=== PATIENT | female | born 1995 | race Caucasian/White ===

== ENCOUNTER 2021-09-21 00:06 | Emergency (ER) | payer OTHER ==
--- NOTE | 2021-09-21 01:29 | EDPHYS ---
Physician Documentation [facility] Name: Susie Short Age: 25 yrs Sex: Female : 1995 Arrival Date: 09/21/2021 Time: 00:10 Bed 8 Private MD: ED Physician Raymon Mcduffie HPI: 09/21 01:24 This 25 yrs old Female presents to ER via Ambulatory with complaints of check for kdr infection of csection. 01:24 Patient presents to ED for recheck of: Patient is about 48 hours post kdr delivery. The affected area is on the suprapubic area, right lower quadrant and left lower quadrant. Previous treatment:. Progress: The patient reports excellent improvement in the affected area. There has been resolution, improvement, or non-development of any drainage, fever, pain, redness or swelling. The patient has not experienced similar symptoms in the past. The patient has been recently seen by a physician: Patient is status post . Patient states she had a little bit of yellow discharge from the right lateral aspect of the wound. The wound appears in good condition and does not appear to be infected at this time peer. 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 - Social history:: Smoking status: Patient denies any tobacco usage or history of. ROS: 01:26 Constitutional: Negative for fever, chills, and weight loss, Eyes: Negative for injury, kdr pain, redness, and discharge, ENT: Negative for injury, pain, and discharge, Neck: Negative for injury, pain, and swelling, Cardiovascular: Negative for chest pain, palpitations, and edema, Respiratory: Negative for shortness of breath, cough, wheezing, and pleuritic chest pain, Back: Negative for injury and pain, : Negative for injury, bleeding, discharge, and swelling, MS/Extremity: Negative for injury and deformity, Skin: Negative for injury, rash, and discoloration, Neuro: Negative for headache, weakness, numbness, tingling, and seizure activity. Psych: Negative for depression, anxiety, suicide ideation, homicidal ideation, and hallucinations, Allergy/Immunology: Negative for hives, rash, and allergies, Endocrine: Negative for neck swelling, polydipsia, polyuria, polyphagia, and marked weight changes, Hematologic/Lymphatic: Negative for swollen nodes, abnormal bleeding, and unusual bruising. 01:26 Abdomen/GI: Positive for abdominal pain, Negative for nausea, vomiting, and diarrhea, abdominal cramps, abdominal distension, black/tarry stool, rectal pain, rectal bleeding. Exam: 01:26 Constitutional: This is a well developed, well nourished patient who is awake, alert, kdr and in no acute distress. Head/Face: Normocephalic, atraumatic. 01:26 Abdomen/GI: Inspection: scar(s), are noted in the suprapubic area, right lower quadrant and left lower quadrant, Patient has a horizontal lower abdominal incision that is Steri-Stripped in good condition. There is no evidence of any infection and I was unable to express any drainage from the wound.. Vital Signs: 00:15 BP 124 / 79; Pulse 99; Resp 18; Temp 98.4; Pulse Ox 98% on R/A; Weight 63.5 kg; Height tw5 5 ft. 3 in. (160.02 cm); Pain 3/10; 00:54 BP 110 / 67; Pulse 79; Resp 18 S; Pulse Ox 99% on R/A; as6 00:15 Body Mass Index 24.80 (63.50 kg, 160.02 cm) tw5 00:15 "I just took some hydrocorodone but before that I was in extreme pain,: tw5 MDM: 01:26 Data reviewed: vital signs, nurses notes, lab test result(s), radiologic studies. kdr Counseling: I had a detailed discussion with the patient and/or guardian regarding: the historical points, exam findings, and any diagnostic results supporting the discharge/admit diagnosis, lab results, radiology results. ED course: The nanotechnology engineering technologist reported that there was no area of concern for abscess or fluid collection at this time. The data would be sent to the night reader for official report. 01:29 Patient medically screened. kdr 09/21 00:44 Order name: US Abdomen Limited kdr Administered Medications: No medications were administered Disposition Summary: 09/21/21 01:29 Discharge Ordered Location: Home kdr Problem: new kdr Symptoms: are unchanged kdr Condition: Stable kdr Diagnosis - Other abdominal pain - Post , incisional pain kdr Followup: kdr - With: Private Physician - When: 2 - 3 days - Reason: If symptoms return, Further diagnostic work-up, Recheck today's complaints, Continuance of care, Re-evaluation by your physician Discharge Instructions: - Discharge Summary Sheet kdr - Abdominal Pain, Adult, [id number] kdr - Incision Care, Adult, [id number] kdr Forms: - Medication Reconciliation Form kdr - Thank You Letter kdr Signatures: Dispatcher [employer] Raymon North MD MD kdr Abi Zavala tw5
--- NOTE | 2021-09-21 01:29 | ER ---
Nurse's Notes [facility] Name: Susie Short Age: 25 yrs Sex: Female : 1995 Arrival Date: 09/21/2021 Time: 00:10 Bed 8 Private MD: Diagnosis: Other abdominal pain-Post , incisional pain Presentation: 09/21 00:15 Chief complaint: Patient states: "I think my scar is infected. I just had her tw5 48 hours ago. They told me to come here. It is yellow with red streaks and it is pretty painful on the right side. I don't recall my last hurting this bad". Coronavirus screen: Vaccine status: Patient reports being unvaccinated. Ebola Screen: Patient negative for fever greater than or equal to 101.5 degrees Fahrenheit, and additional compatible Ebola Virus Disease symptoms Patient denies exposure to infectious person. Patient denies travel to an Ebola-affected area in the 21 days before illness onset. Initial Sepsis Screen: Does the patient meet any 2 criteria? HR > 90 bpm. No. Patient's initial sepsis screen is negative. Does the patient have a suspected source of infection? Yes: Skin breakdown/wound. Risk Assessment: Do you want to hurt yourself or someone else? Patient reports no desire to harm self or others. Onset of symptoms was September 20, 2021 at 16:00. 00:15 Method Of Arrival: Ambulatory tw5 00:15 Acuity: GENIA 3 tw5 Triage Assessment: 00:19 General: Appears uncomfortable, Behavior is calm, cooperative, appropriate for age. tw5 Pain: Pain currently is 3 out of 10 on a pain scale. at worst was 10 out of 10 on a pain scale. 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 - Social history:: Smoking status: Patient denies any tobacco usage or history of. Screenin:55 Abuse screen: Denies threats or abuse. Denies injuries from another. Nutritional as6 screening: No deficits noted. Tuberculosis screening: No symptoms or risk factors identified. Fall Risk None identified. Assessment: 00:53 General: Appears in no apparent distress. Behavior is calm, cooperative. Pain: as6 Complains of pain in suprapubic area. Neuro: Level of Consciousness is awake, alert, obeys commands, Oriented to person, place, time, situation. Cardiovascular: Capillary refill < 3 seconds Patient's skin is warm and dry. Respiratory: Airway is patent Trachea midline Respiratory effort is even, unlabored, Respiratory pattern is regular, symmetrical. GI: Abdomen is round. Derm: Wound noted suprapubic area Wound is incision, reddened, warm,with slight oozing. Vital Signs: 00:15 BP 124 / 79; Pulse 99; Resp 18; Temp 98.4; Pulse Ox 98% on R/A; Weight 63.5 kg; Height tw5 5 ft. 3 in. (160.02 cm); Pain 3/10; 00:54 BP 110 / 67; Pulse 79; Resp 18 S; Pulse Ox 99% on R/A; as6 00:15 Body Mass Index 24.80 (63.50 kg, 160.02 cm) tw5 00:15 "I just took some hydrocorodone but before that I was in extreme pain,: tw5 ED Course: 00:10 Patient arrived in ED. es 00:19 Triage completed. tw5 00:19 Arm band placed on right wrist. tw5 00:27 Randall Lopez, SHYAM is Primary Nurse. as6 00:32 Raymon Mcduffie MD is Attending Physician. kdr 00:55 Bed in low position. Call light in reach. Side rails up X2. Adult w/ patient. Pulse ox as6 on. NIBP on. Warm blanket given. PO fluids given. 01:13 US Abdomen Limited In Process Unspecified. EDMS 01:30 No provider procedures requiring assistance completed. Patient did not have IV access as6 during this emergency room visit. Administered Medications: No medications were administered Outcome: 01:29 Discharge ordered by . kdr 01:47 Discharged to home ambulatory, with family. as6 01:47 Condition: stable 01:47 Discharge instructions given to patient, Instructed on discharge instructions, follow up and referral plans. Demonstrated understanding of instructions, follow-up care. 01:48 Patient left the ED. as6 Signatures: Dispatcher [employer] Raymon North MD MD kdr Salyer, Edna es Wood, Tiffany tw5 Randall Lopez RN RN as6
[2021-09-21 02:02] VITALS: TEMP 98.4
[2021-09-21 02:03] VITALS: BP 110/67; O2SAT 99
--- NOTE | 2021-09-21 15:42 | RAD REPORT ---
EXAM DESCRIPTION: US - Abdomen Exam Limited - 09/21/2021 1:59 am CLINICAL HISTORY: 25 years, Female, ABD PAIN COMPARISON: None. TECHNIQUE: Utilizing a curved array transducer, real-time ultrasound evaluation of the female pelvis was performed. Color Doppler imaging was used to assess vascular flow. FINDINGS: The uterus is prominent. There is no evidence for abnormal fluid collection. No evidence f or free air, gas and/or the presence of a post surgical changes. No free fluid was identified in the posterior cul-de-sac, no adnexal masses seen. No significant abnormalities demonstrated within the skin/or substance tissue IMPRESSION: NO SIGNIFICANT ABNORMALITIES IDENTIFIED WITHIN THE RIGHT PELVIC AREA AT THE AREA OF KAYLENE ENT AGE PAIN. NO EVIDENCE FOR FREE FLUID, MASS AND/OR POSTSURGICAL CHANGES. Electronically signed by: Nino Barnett MD 09/21/2021 1:51 AM YARN FINISHER Due to temporary technical issues with the PACS/Fluency reporting system, reports are being signed by the in house radiologists without review as a courtesy to insure prompt reporting. The interpreting radiologist is fully responsible for the content of the report.
== END 2021-09-21 01:48 | disposition home or self-care (01) ==
LOC: ER 00:06
DX: R10.9 Unspecified abdominal pain (principal); Z98.890 Other specified postprocedural states; Z88.5 Allergy status to narcotic agent
CPT/HCPCS: 76705; 99283

== ENCOUNTER 2021-10-02 09:23 | Emergency (ER) | payer OTHER ==
[2021-10-02 10:15] LABS: Urine Blood 3+ (Negative); Urine Glucose Negative (Negative); Urine Protein Negative (Negative); Urine Specific Gravity >=1.030 (1.005-1.030)
--- NOTE | 2021-10-02 11:06 | RAD REPORT ---
EXAM DESCRIPTION: US - Pelvis Complete - 10/02/2021 10:51 am CLINICAL HISTORY: pelvic pain Pelvic pain. COMPARISON: No comparisons FINDINGS: The uterus is normal in size, shape and echotexture. The uterus measures 9.6 cm Trace fluid within the endometrial canal. . Both ovaries are normal in size, shape and echotexture. The right ovary measures 1.7 cc. The left o vary measures 3.5 cc. No ovarian or parovarian lesions. No adnexal masses. Normal Doppler blood flow was demonstrated to both ovaries. No significant pelvic ascites. IMPRESSION: Fluid within the endometrial canal could represent small volume of blood products. No ot her significant abnormality identified. Bilateral ovarian blood flow.
--- NOTE | 2021-10-02 12:02 | EDPHYS ---
Physician Documentation [facility] Name: Susie Short Age: 25 yrs Sex: Female : 1995 Arrival Date: 10/02/2021 Time: 09:24 Bed 17 Private MD: ED Physician Yannick Lees HPI: 10/02 09:45 This 25 yrs old Female presents to ER via Ambulatory with complaints of Pelvic Pain, jmm csection problem. 09:45 The patient presents with vaginal bleeding that is light. Onset: The symptoms/episode jmm began/occurred gradually, 2 week(s) ago. Modifying factors: The symptoms are alleviated by nothing, the symptoms are aggravated by nothing. This is a 25-year-old female G1, P1 that presents emerged department with complaints of lower abdominal pain and pelvic pain which has been ongoing since delivery approximately 2 weeks ago. Patient is been evaluated for wound dehiscence previously at this ED. Patient states her pelvic pain is moved mainly to the right side. Denies passing any clots or tissue. . Historical: - Allergies: 09:32 Morphine; ww - Home Meds: 09:32 albuterol sulfate 2 mg/5 mL Oral syrp [Active]; ww - PSHx: 09:32 section; ww - Immunization history:: Adult Immunizations not immunized. - Social history:: Smoking status: Patient denies any tobacco usage or history of. Patient uses street drugs, marijuana. ROS: 09:45 Constitutional: Negative for fever, chills, and weight loss, Cardiovascular: Negative jmm for chest pain, palpitations, and edema, Respiratory: Negative for shortness of breath, cough, wheezing, and pleuritic chest pain. 09:45 : Positive for pelvic pain, vaginal bleeding. 09:45 All other systems are negative. Exam: 09:45 Constitutional: This is a well developed, well nourished patient who is awake, alert, jmm and in no acute distress. Head/Face: atraumatic. Eyes: EOMI, no conjunctival erythema appreciated ENT: Moist Mucus Membranes Neck: Trachea midline, Supple Chest/axilla: Normal chest wall appearance and motion. Cardiovascular: Regular rate and rhythm. No edema appreciated Respiratory: Normal respirations, no respiratory distress appreciated 09:45 Back: Normal ROM Skin: General appearance color normal MS/ Extremity: Moves all extremities, no obvious deformities appreciated, no edema noted to the lower extremities Neuro: Awake and alert Psych: Behavior is normal, Mood is normal, Patient is cooperative and pleasant 09:45 Abdomen/GI: Inspection: abdomen appears normal, Bowel sounds: normal, Palpation: soft, mild abdominal tenderness, in the suprapubic area. Vital Signs: 09:29 BP 110 / 72; Pulse 89; Resp 18; Temp 97.7; Pulse Ox 100% ; Height 5 ft. 3 in. (160.02 ww cm); Pain 7/10; 10:21 BP 111 / 58; Pulse 86; Resp 16; Pulse Ox 98% on R/A; ab2 11:15 BP 108 / 63; Pulse 89; Resp 16; Pulse Ox 99% on R/A; ab2 12:08 BP 112 / 69; Pulse 87; Resp 18; Pulse Ox 99% on R/A; ab2 MDM: 09:45 Patient medically screened. [facility] 11:57 Data reviewed: vital signs, nurses notes. [facility] 11:57 Counseling: I had a detailed discussion with the patient and/or guardian regarding: the [facility] historical points, exam findings, and any diagnostic results supporting the discharge/admit diagnosis, lab results, radiology results, the need for outpatient follow up, to return to the emergency department if symptoms worsen or persist or if there are any questions or concerns that arise at home. ED course: Patient alert and nontoxic in appearance in the ED. Physical exam was unremarkable. Patient's abdomen was soft, no signs of induration. No guarding on palpation. Patient will be treated with oral antibiotics for urinary tract infection otherwise advised to follow-up with LEADERSHIP INTERN for further evaluation.. 10/02 10:14 Order name: Urine Dipstick-Ancillary; Complete Time: 10:17 EDAR 10/02 09:59 Order name: US Pelvis Complete; Complete Time: 11:14 [facility] 10/02 09:59 Order name: Urine Dipstick-Ancillary (obtain specimen); Complete Time: 10:14 [facility] Administered Medications: No medications were administered Disposition Summary: 10/02/21 12:01 Discharge Ordered Location: Home [facility] Condition: Stable [facility] Diagnosis - Pelvic and perineal pain [facility] - UTI/ Urinary tract infection, site not specified [facility] Followup: [facility] - With: Private Physician - When: 2 - 3 days - Reason: Recheck today's complaints, Continuance of care, Re-evaluation by your physician Discharge Instructions: - Discharge Summary Sheet jmm - Urinary Tract Infection, Adult jmm - Delivery, Care After jmm - Care After Delivery [facility] Forms: - Medication Reconciliation Form jm - Thank You Letter jmm - Antibiotic Education jmm - Prescription Opioid Use jm Prescriptions: - Cephalexin 500 mg Oral Capsule - take 1 capsule by ORAL route every 8 hours for 10 days; 30 capsule; Refills: 0, jmm Product Selection Permitted Signatures: Dispatcher [employer] Yannick Cheng MD MD cha Mickail, Joel, PA PA Thuy Harrison, RN RN ww
--- NOTE | 2021-10-02 12:02 | ER ---
Nurse's Notes [facility] Name: Susie Short Age: 25 yrs Sex: Female : 1995 Arrival Date: 10/02/2021 Time: 09:24 Bed 17 Private MD: Diagnosis: Pelvic and perineal pain;UTI/ Urinary tract infection, site not specified Presentation: 10/02 09:29 Chief complaint: Patient states: Had a 2 weeks ago tomorrow and popped an internal stitch 6 days ago and went to [facility] and they said everything was fine. She is still complaining of abdominal pain with increased vaginal bleeding but not soaking a pad. Admits to nausea that is progressively worse but denies any vomiting. Lightheaded and blurry vision at times but very frequent per spouse. Coronavirus screen: Client denies travel out of the [place] in the last 14 days. Ebola Screen: Patient negative for fever greater than or equal to 101.5 degrees Fahrenheit, and additional compatible Ebola Virus Disease symptoms. Initial Sepsis Screen: Does the patient meet any 2 criteria? No. Patient's initial sepsis screen is negative. Does the patient have a suspected source of infection? No. Patient's initial sepsis screen is negative. Risk Assessment: Do you want to hurt yourself or someone else? Patient reports no desire to harm self or others. Onset of symptoms is unknown. 09:29 Method Of Arrival: Ambulatory 09:29 Acuity: GENIA 3 Triage Assessment: 09:32 General: Appears uncomfortable, Behavior is cooperative. Pain: Complains of pain in suprapubic area, right lower quadrant and left lower quadrant. EENT: No signs and/or symptoms were reported regarding the EENT system. Neuro: Level of Consciousness is awake, alert, obeys commands, Oriented to person, place, time, situation, Speech is normal. Cardiovascular: Capillary refill < 3 seconds Patient's skin is warm and dry. Respiratory: Airway is patent Respiratory effort is even, unlabored, Respiratory pattern is regular, symmetrical. GI: Reports lower abdominal pain, nausea. Derm: Skin is healthy with good turgor. Historical: - Allergies: 09:32 Morphine; ww - Home Meds: 09:32 albuterol sulfate 2 mg/5 mL Oral syrp [Active]; ww - PSHx: 09:32 section; ww - Immunization history:: Adult Immunizations not immunized. - Social history:: Smoking status: Patient denies any tobacco usage or history of. Patient uses street drugs, marijuana. Screenin:35 Abuse screen: Denies threats or abuse. Denies injuries from another. Nutritional ww screening: No deficits noted. Tuberculosis screening: No symptoms or risk factors identified. Fall Risk None identified. Assessment: 09:57 Reassessment:. General: Appears in no apparent distress. comfortable, Behavior is calm, ab2 cooperative, appropriate for age. Pain: Complains of pain in suprapubic area. Neuro: Level of Consciousness is awake, alert, obeys commands, Oriented to person, place, time, situation, Appropriate for age Title Insurance Examiner are equal bilaterally Moves all extremities. Gait is steady. Cardiovascular: Denies chest pain, shortness of breath, Heart tones S1 S2 present Patient's skin is warm and dry. Chest pain is denied. Respiratory: Airway is patent Respiratory effort is even, unlabored, Respiratory pattern is regular, symmetrical. GI: Abdomen is round non-distended, Bowel sounds present X 4 quads. Reports lower abdominal pain. : No deficits noted. No signs and/or symptoms were reported regarding the genitourinary system. EENT: No deficits noted. No signs and/or symptoms were reported regarding the EENT system. Vital Signs: 09:29 BP 110 / 72; Pulse 89; Resp 18; Temp 97.7; Pulse Ox 100% ; Height 5 ft. 3 in. (160.02 ww cm); Pain 7/10; 10:21 BP 111 / 58; Pulse 86; Resp 16; Pulse Ox 98% on R/A; ab2 11:15 BP 108 / 63; Pulse 89; Resp 16; Pulse Ox 99% on R/A; ab2 12:08 BP 112 / 69; Pulse 87; Resp 18; Pulse Ox 99% on R/A; ab2 ED Course: 09:24 Patient arrived in ED. am2 09:32 Triage completed. ww 09:32 Arm band placed on right wrist. ww 09:42 Maverick Mayo PA is PHCP. [facility] 09:42 Yannick Lees MD is Attending Physician. [facility] 09:57 Hai Stevenson is Primary Nurse. ab2 10:01 No provider procedures requiring assistance completed. ab2 10:02 Patient has correct armband on for positive identification. Bed in low position. Call ab2 light in reach. Side rails up X2. Adult w/ patient. 10:14 Urine Dipstick-Ancillary Sent. ab2 10:45 US Pelvis Complete In Process Unspecified. EDMS 12:09 Patient did not have IV access during this emergency room visit. ab2 Administered Medications: No medications were administered Outcome: 12:01 Discharge ordered by . rosalina 12:09 Discharged to home ambulatory, with family. ab2 12:09 Condition: good 12:09 Discharge instructions given to patient, family, Instructed on discharge instructions, follow up and referral plans. medication usage, Demonstrated understanding of instructions, follow-up care, medications, Prescriptions given X 1. 12:09 Patient left the ED. ab2 Signatures: Dispatcher [employer] EDMS Maverick Mayo PA PA jmm Moreno, Amanda am2 Thuy Zavala, RN RN Hai Whitaker ab2
[2021-10-02 12:16] VITALS: TEMP 97.7
[2021-10-02 12:18] VITALS: O2SAT 99
[2021-10-02 12:19] VITALS: BP 112/69
== END 2021-10-02 12:09 | disposition home or self-care (01) ==
LOC: ER 09:23
DX: N39.0 Urinary tract infection, site not specified (principal); Z88.5 Allergy status to narcotic agent
CPT/HCPCS: 76856; 81003; 99283

== ENCOUNTER 2021-10-18 05:10 | Emergency (ER) | payer OTHER ==
--- NOTE | 2021-10-18 05:46 | EDPHYS ---
Physician Documentation [facility] Name: Susie Short Age: 26 yrs Sex: Female : 1995 Arrival Date: 10/18/2021 Time: 05:13 Bed 20 Private MD: ED Physician Jalen Santiago HPI: 10/18 05:49 This 26 yrs old Female presents to ER via Ambulatory with complaints of C SECTION ms3 INFECTED. 05:49 The patient's rash thought to be caused by Erythema at c section scar. The rash is ms3 located on the suprapubic area. The rash can be described as erythematous. Onset: The symptoms/episode began/occurred acutely, 2 day(s) ago. Associated signs and symptoms: Pertinent positives: Pain Pertinent negatives: fever. Severity of symptoms: At their worst the symptoms were moderate in the emergency department the symptoms are unchanged. 6-year-old female with past medical history of asthma presents for infection of her incision. Patient states she had a on September 19, 2021. Patient states the pain is a 5/10 and aching. Patient states the pain is worse when laying on her right side. Patient states this has been ongoing for 2 days.. 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 - Social history:: Smoking status: Patient denies any tobacco usage or history of. Patient uses street drugs, marijuana. ROS: 05:49 Constitutional: Negative for fever, and chills. Neck: Negative for injury, pain, and ms3 swelling, Cardiovascular: Negative for chest pain, and palpitations. Respiratory: Negative for shortness of breath, cough, wheezing, and pleuritic chest pain, Abdomen/GI: Negative for abdominal pain, nausea, vomiting, diarrhea, and constipation, Back: Negative for injury and pain, MS/Extremity: Negative for injury and deformity. 05:49 Skin: Positive for rash. 05:49 All other systems are negative. Exam: 05:49 Constitutional: This is a well developed, well nourished patient who is awake, alert, ms3 and in no acute distress. Head/Face: Normocephalic, atraumatic. Neck: Trachea midline, no cervical lymphadenopathy. Supple, full range of motion without nuchal rigidity, or vertebral point tenderness. No Meningismus. Chest/axilla: Normal chest wall appearance and motion. Nontender with no deformity. Cardiovascular: Regular rate and rhythm with a normal S1 and S2. No gallops, murmurs, or rubs. Normal PMI, no JVD. No pulse deficits. Respiratory: Lungs have equal breath sounds bilaterally, clear to auscultation and percussion. No rales, rhonchi or wheezes noted. No increased work of breathing, no retractions or nasal flaring. Abdomen/GI: Soft, non-tender, with normal bowel sounds. No distension or tympany. No guarding or rebound. No evidence of tenderness throughout. 05:49 Skin: cellulitis, that is moderate, on the suprapubic area, Bedside US does not show fluid collection. Site TTP, No drainage. Vital Signs: 05:24 BP 98 / 71; Pulse 69; Resp 16; Temp 98.5(O); Pulse Ox 99% on R/A; Weight 55.79 kg (R); lp1 Height 5 ft. 3 in. (160.02 cm); Pain 6/10; 05:42 BP 114 / 78 LA Sitting (auto/reg); Pulse 70 MON; Resp 20 S; Temp 98.3(O); Pulse Ox 99% sv1 on R/A; Pain 8/10; 05:24 Body Mass Index 21.79 (55.79 kg, 160.02 cm) lp1 MDM: 05:43 Patient medically screened. ms3 05:49 Differential diagnosis: Cellulitis vs abscess vs reaction to stitch. Data reviewed: ms3 vital signs, nurses notes. Counseling: I had a detailed discussion with the patient and/or guardian regarding: the historical points, exam findings, and any diagnostic results supporting the discharge/admit diagnosis, the need for outpatient follow up, an OB/Gyne specialist, to return to the emergency department if symptoms worsen or persist or if there are any questions or concerns that arise at home. Administered Medications: No medications were administered Disposition Summary: 10/18/21 05:45 Discharge Ordered Location: Home ms3 Condition: Stable ms3 Diagnosis - Cellulitis of abdominal wall ms3 Followup: ms3 - With: Private Physician - When: 1 - 2 days - Reason: Re-evaluation by your physician Discharge Instructions: - Discharge Summary Sheet ms3 - Cellulitis, Adult ms3 Forms: - Medication Reconciliation Form ms3 - Thank You Letter ms3 - Antibiotic Education ms3 - Prescription Opioid Use ms3 Prescriptions: - Cephalexin 500 mg Oral Capsule - take 1 capsule by ORAL route every 6 hours for 7 days; 28 capsule; Refills: 0, ms3 Product Selection Permitted Signatures: Michelle Maria RN RN lp1 Jalen Santiago DO DO ms3
--- NOTE | 2021-10-18 05:46 | ER ---
Nurse's Notes [facility] Name: Susie Short Age: 26 yrs Sex: Female : 1995 Arrival Date: 10/18/2021 Time: 05:13 Bed 20 Private MD: Diagnosis: Cellulitis of abdominal wall Presentation: 10/18 05:21 Chief complaint: Patient states: "pain, redness, and swelling for a couple days"; lp1 patient reports shooting pain on movement to right side of incision; Reports discharge to surgical site; Denies fever; on 09/19/21. Coronavirus screen: At this time, the client does not indicate any symptoms associated with coronavirus-19. Ebola Screen: No symptoms or risks identified at this time. Risk Assessment: Do you want to hurt yourself or someone else? Patient reports no desire to harm self or others. Onset of symptoms was October 18, 2021. 05:21 Method Of Arrival: Ambulatory lp1 05:21 Acuity: GENIA 3 lp1 05:24 Initial Sepsis Screen: Does the patient meet any 2 criteria? No. Patient's initial lp1 sepsis screen is negative. Does the patient have a suspected source of infection? No. Patient's initial sepsis screen is negative. 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 - Social history:: Smoking status: Patient denies any tobacco usage or history of. Patient uses street drugs, marijuana. Screenin:24 Abuse screen: Denies threats or abuse. Denies injuries from another. Nutritional lp1 screening: No deficits noted. Tuberculosis screening: No symptoms or risk factors identified. 05:42 Fall Risk None identified. No fall in past 12 months (0 pts). No secondary diagnosis (0 sv1 pts). No IV (0 pts). Ambulatory Aid- None/Bed Rest/Nurse Assist (0 pts). Gait- Normal/Bed Rest/Wheelchair (0 pts) Mental Status- Oriented to own ability (0 pts). Assessment: 05:45 Pain: Complains of pain in right lower quadrant. sv1 05:52 Reassessment: Patient is alert, oriented x 3, equal unlabored respirations, skin bb warm/dry/pink. pt verbalized understanding of and agrees to plan of care discharge instructions given pt ambulated with steady gait to exit. Vital Signs: 05:24 BP 98 / 71; Pulse 69; Resp 16; Temp 98.5(O); Pulse Ox 99% on R/A; Weight 55.79 kg (R); lp1 Height 5 ft. 3 in. (160.02 cm); Pain 6/10; 05:42 BP 114 / 78 LA Sitting (auto/reg); Pulse 70 MON; Resp 20 S; Temp 98.3(O); Pulse Ox 99% sv1 on R/A; Pain 8/10; 05:24 Body Mass Index 21.79 (55.79 kg, 160.02 cm) lp1 ED Course: 05:13 Patient arrived in ED. es 05:19 Jalen Santiago DO is Attending Physician. ms3 05:22 Triage completed. lp1 05:22 Arm band placed on. lp1 05:42 Edenilson Shaikh, SHYAM is Primary Nurse. sv1 05:42 Patient has correct armband on for positive identification. Bed in low position. Call sv1 light in reach. Side rails up X2. 05:44 chaperoned exam of pt scar. bb 05:52 Patient did not have IV access during this emergency room visit. bb Administered Medications: No medications were administered Outcome: 05:45 Discharge ordered by . ms3 05:52 Discharged to home ambulatory. bb 05:52 Condition: stable 05:52 Discharge instructions given to patient, Instructed on discharge instructions, follow up and referral plans. medication usage, Demonstrated understanding of instructions, follow-up care, medications, Prescriptions given X 1. 05:53 Patient left the ED. bb Signatures: Aundrea Peters Brenda, RN RN bb Michelle Maria RN RN lp1 Jalen Santiago DO DO ms3 Edenilson Shaikh, SHYAM RN sv1 Corrections: (The following items were deleted from the chart) 05:26 05:24 Pulse 69bpm; Resp 16bpm; Pulse Ox 99% RA; Temp 98.5F Oral; 55.79 kg Reported; lp1 Height 5 ft. 3 in.; BMI: 21.7; Pain 6/10; lp1
[2021-10-18 06:10] VITALS: O2SAT 99
[2021-10-18 06:11] VITALS: BP 114/78; TEMP 98.3
== END 2021-10-18 05:53 | disposition home or self-care (01) ==
LOC: ER 05:10
DX: L03.311 Cellulitis of abdominal wall (principal); Z88.6 Allergy status to analgesic agent; J45.909 Unspecified asthma, uncomplicated; Z98.890 Other specified postprocedural states
CPT/HCPCS: 99282